=== PATIENT | male | born 1965 | race African-American/Black ===

== ENCOUNTER 2017-04-08 21:36 | Emergency (ER) | payer OTHER ==
--- NOTE | ~2017-04-08 | EKG ---
PATIENT: DOYLE CROWDER UNIT #: [id number] Ventricular Rate: 68 BPM Atrial Rate: 68 BPM P-R Interval: 174 ms QRS Duration: 96 ms Q-T Interval: 368 ms QTC Calculation(Bezet): 391 ms P Trent: 1 degrees Calculated R Trent: -27 degrees Calculated T Trent: -21 degrees Diagnosis Line: Normal sinus rhythm with sinus arrhythmia Diagnosis Line: Minimal voltage criteria for LVH, may be normal Diagnosis Line: variant Diagnosis Line: Poor R wave progression questionable lead position Diagnosis Line: or body habitus consider prior anteroseptal Diagnosis Line: infarct , age undetermined Diagnosis Line: Abnormal ECG Diagnosis Line: No previous ECGs available Diagnosis Line: Confirmed by JO PATTON MD ([id number]) on Diagnosis Line: 04/09/2017 10:26:46 PM INTERPRETING MD: JAMIE
--- NOTE | ~2017-04-08 | CT71 ---
[facility] A Service of [facility] RADIOLOGY TEXT RESULTS PATIENT: DOYLE CROWDER LOCATION: [facility] : 69 UNIT #: [id number] AGE: [address]: Romel Campo MD SEX: M ORDER DR: [id number] [facility] [address] [place], [place] [address] [id number] E MR#: [id number] Acc #: [id number] NAME: DOYLE CROWDER : 1965 SEX: M STUDY DATE/TIME: 04/08/2017 UNIT: [facility] ROOM: STUDY DESCRIPTION: CT Head Wo Contrast Attending Physician: Romel Campo M.D. Ordering Physician: Romel Campo M.D. Primary Care Physician: Primary Care Physician No MEDICAL IMAGING REPORT This report is preliminary unless electronic signature is present EXAM Head CT 04/08 23:29 INDICATIONS Syncopal episode tonight. Patient intoxicated. Patient hit head. Trauma to the forehead and nose. Headache. COMPARISON None. FINDINGS Axial images were obtained from base to vertex without contrast. The CT exam was performed with one or more of the following radiation dose reduction techniques: automatic exposure control, adjustment of mA and/or kV according to patient size, and iterative reconstruction. Ventricular size and configuration within normal limits. There is no acute infarct or hemorrhage. There are no masses. There is a right side depressed nasal fracture which is age indeterminate. No skull fracture. There is soft tissue swelling over the forehead. IMPRESSION No acute findings in the brain. No skull fracture. Soft tissue swelling in the forehead is present. There is an age indeterminate right side nasal bone fracture. Dictated by... Nima Zavaleta Jr., M.D. THIS IS AN ELECTRONICALLY VERIFIED REPORT [facility] A Service of [facility] RADIOLOGY TEXT RESULTS PATIENT: DOYLE CROWDER LOCATION: [facility] : 69 UNIT #: [id number] AGE: [address]: Romel Campo MD SEX: M ORDER DR: Nima Zavaleta Jr., M.D. at 04/09/2017 9:14 PM LEONILA/guille TD: 04/09/2017 10:01 JOB #: [id number] MEDICAL IMAGING REPORT Page 1 of 1 COPY
[2017-04-09 00:17] LABS: BASOPHIL# 0.1 X10e3 (0-0.3); BASOPHIL% 0.7 % (0-2.5); DIFF IND NO; EOSINOPHIL# 0.2 X10e3 (0-0.7); EOSINOPHIL% 1.7 % (0.0-7.0); HEMATOCRIT 49.2 % (38.0-50.0); HEMOGLOBIN 16.2 gm/dL (13.0-16.0); LYMPHOCYTE# 3.2 X10e3 (1.0-3.5); LYMPHOCYTE% 35.2 % (17.0-45.0); MEAN CELL VOLUME 89.7 FL (83-96); MEAN CORPUSCULAR HEMOGLOBIN 29.6 PG (28-34); MEAN PLATELET VOLUME 8.9 FL (6.5-11.5); MONOCYTE# 0.7 X10e3 (0-1.0); MONOCYTE% 7.6 % (3.0-12.0); NEUTROPHIL% 54.8 % (40-75); PLATELET COUNT 174 X10e3 (140-420); RED BLOOD COUNT 5.49 X10e (3.90-5.60); RED CELL DISTRIBUTION WIDTH 13.7 % (11.0-15.5); WHITE BLOOD COUNT 9.2 X10e3 (4.0-10.5)
[2017-04-09 00:25] LABS: POC - CKMB 2.3 ng/mL (0.0-7.9); POC - TROPONIN <0.05 ng/mL (<=0.05)
[2017-04-09 00:41] LABS: ALBUMIN SERUM 4.2 g/dL (3.5-5.0); BILIRUBIN, DIRECT 0.1 mg/dL (0.0-0.2); BILIRUBIN,INDIRECT 0.4 mg/dL (0.0-0.9); BILIRUBIN,TOTAL 0.5 mg/dL (0.2-2.0); BUN/CREATININE RATIO 16.42; CALCIUM SERUM 9.3 mg/dL (8.4-10.2); CREATININE SERUM 1.4 mg/dL (0.6-1.4); GLOM FILT RATE Estimated 67.9 mL/min (>60); PROTEIN TOTAL SERUM 7.8 g/dL (6.0-8.3)
[2017-04-09 00:52] LABS: POTASSIUM 2.8 mmol/L (3.5-5.1)
== END 2017-04-09 01:35 | disposition home or self-care (01) ==
LOC: CED 21:36
PROVIDERS: Emergency Medicine
DX: S09.90XA Unspecified injury of head, initial encounter (principal); E87.6 Hypokalemia; F10.129 Alcohol abuse with intoxication, unspecified; I12.9 Hypertensive chronic kidney disease with stage 1 through stage 4 chronic kidney disease, or unspecified chronic kidney disease; E11.22 Type 2 diabetes mellitus with diabetic chronic kidney disease; N18.9 Chronic kidney disease, unspecified; F17.210 Nicotine dependence, cigarettes, uncomplicated; Y90.5 Blood alcohol level of 100-119 mg/100 ml; W19.XXXA Unspecified fall, initial encounter
CPT/HCPCS: 36415; 70450; 80048; 80076; 82553; 82947; 84484; 85025; 93005; 96360; 99285; G0480